=== PATIENT | female | born 1970 | race Hispanic/Latino ===

== ENCOUNTER 2024-07-21 06:17 | Emergency (ER) | payer SELFPAY ==
[2024-07-21] MEDS ORDERED: Morphine 4 MG/ML VIAL ONE (06:41)
[2024-07-21] MEDS ORDERED: Ondansetron PF 4 MG/2 ML Vial ONE (06:41)
[2024-07-21] MEDS ORDERED: Mag-Al 1200 mg/1200 mg/30 ML UDCUP ONE (06:41)
[2024-07-21] MEDS ORDERED: Lidocaine Viscous Sol 2% 15 ml UD Cup ONE (06:41)
[2024-07-21 07:10] LABS: #Basophils 0.03 10x3/uL (0.0-0.2); %Basophils 0.2 % (0.0-1.0); %Eosinophils 0.5 % (0.0-10.0); %Lymphocytes 13.8 % (21.0-51.0); %Monocytes 7.1 % (0.0-10.0); %Neutrophils 77.8 % (42.0-75.0); Hematocrit 43.4 % (36.0-47.0); Hemoglobin 14.4 g/dL (12.0-16.0); Mean Corpuscular HGB CONC 33.2 g/dL (32.0-36.0); Mean Corpuscular Hemoglobin 28.4 pg (27.0-31.0); Mean Corpuscular Volume 85.6 fL (78.0-98.0); Mean Platelet Volume 9.4 fL (7.4-10.4); Platelet Count 360 10x3/uL (130-400); RBC Distribution Width 13.4 % (11.5-14.5); Red Blood Cell (RBC) Count 5.07 mill/uL (4.20-5.40)
[2024-07-21 07:41] LABS: Troponin I 0.015 ng/mL (< 0.028)
[2024-07-21 07:43] LABS: ALT (SGPT) 36 U/L (Less than 34); AST (SGOT) 32 U/L (11-34); Alkaline Phosphatase 137 U/L (40-110); Anion Gap 18 mmol/L (10-20); BUN (Urea Nitrogen) 18 mg/dL (9.8-20.1); Bilirubin, Total 0.6 mg/dL (0.3-1.2); Calc. Creatinine Clearance 0 mL/min (70-130); Calcium 9.5 mg/dL (7.8-10.44); Carbon Dioxide 18 mmol/L (22-29); Chloride 104 mmol/L (98-107); Estimated GFR 117; Globulin 4.2 g/dL (2.4-3.5); Glucose 129 mg/dL (70-105); Lipase 17 U/L (8-78); Potassium 3.6 mmol/L (3.5-5.1); Protein, Total 8.2 g/dL (6.0-8.3); Sodium 136 mmol/L (136-145)
[2024-07-21] MEDS ORDERED: Dicyclomine 20 MG TAB ONE (07:55)
[2024-07-21 08:18] LABS: Bacteria/HPF None Seen HPF (None Seen); Bilirubin Negative (Negative); Blood, Urine Trace (Negative); CAUTI Indications for Culture Acute Hematuria; Clarity Clear (Clear); Glucose, Urine (Dipstick) Normal (Negative); Ketone, Urine Negative (Negative); Leukocyte Negative Leu/uL (Negative); Nitrite Negative (Negative); Protein, Urine (Dipstick) 10 mg/dL (Neg-Trace); Squamous Epithelial 0-3 HPF (0-3); Urobilinogen Normal mg/dL (Less than 2); WBC/HPF 0-3 HPF (0-3)
[2024-07-21 08:19] LABS: Specific Gravity, Urine 1.005 (1.002-1.036)
[2024-07-21 08:20] LABS: Urine Culture Reflex No No
[2024-07-21] MEDS ORDERED: Iopamidol-370 76% 500 ML MDV (1 ML CHARGE) ONE (10:23)
== END 2024-07-21 08:50 | disposition home or self-care (01) ==
LOC: ERS 06:17
DX: K57.30 Diverticulosis of large intestine without perforation or abscess without bleeding (principal); K52.9 Noninfective gastroenteritis and colitis, unspecified; N20.0 Calculus of kidney
CPT/HCPCS: 36415; 74177; 80053; 81001; 83690; 84484; 85025; 93005; 96374; 96375; J2270; J2405; Q9967